=== PATIENT | female | born 1985 | race African-American/Black ===

== ENCOUNTER 2016-12-21 18:10 | Emergency (ER) | payer SELFPAY ==
--- NOTE | 2016-12-21 18:58 | NUR ---
PATIENT LEFT WITHOUT BEING SEEN BY DR. DE PAZ. NO FURTHER CARE PROVIDED FOR PATIENT.
== END 2016-12-21 18:58 | disposition left against medical advice (07) ==
LOC: MED 18:10
DX: Z53.21 Procedure and treatment not carried out due to patient leaving prior to being seen by health care provider (principal)